=== PATIENT | female | born 1965 | race Caucasian/White ===

== ENCOUNTER 2024-07-14 14:37 | Outpatient (REF) | payer OTHER, SELFPAY ==
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
[2024-07-14 16:11] LABS: Thyroid Stimulating Hormone 0.74 uIU/mL (0.32-4.0)
[2024-07-14 16:13] LABS: Vitamin B12 487 pg/mL (200-900)
== END 2024-07-14 14:38 | disposition home or self-care (01) ==
LOC: HO.LAB 14:37
PROVIDERS: Visit Provider Psychiatry & Neurology Neurology
DX: G31.84 Mild cognitive impairment of uncertain or unknown etiology (principal)
CPT/HCPCS: 36415; 82607; 84443

== ENCOUNTER 2024-09-21 11:05 | Outpatient (AMB) | payer OTHER, SELFPAY ==
--- NOTE | 2024-09-21 11:21 | A.OFFVIS_ITS ---
Intake Visit Reasons: F/u Allergies acetaminophen (From Percocet) Allergy (Unknown, Verified 09/15/24 10:55) Unknown codeine Allergy (Unknown, Verified 09/15/24 10:55) Unknown oxycodone (From Percocet) Allergy (Unknown, Verified 09/15/24 10:55) Unknown Medication List - Last Reconciled 09/21/24 by Peggy Reddy MD fluoxetine 20 mg PO DAILY gabapentin 600 mg PO DAILY propranolol 10 mg PO ONCE sumatriptan succinate take 1 tab at onset of headache; if no relief may repeat 1 tab after at least 2 hrs; max = 4 tabs/24 hr PO trazodone 50 mg PO BEDTIME zolpidem 10 mg PO BEDTIME HPI Comments Details: 59 years old woman with migraine, restless legs syndrome/periodic limb movement disorder, and insomnia. [facility] Medical History (Updated 09/21/24 @ 11:27 by Peggy Reddy MD) MCI (mild cognitive impairment) Anxiety disorder Depression Insomnia Periodic limb movement Migraine Review of Systems Const Details: Constitutional:?No fever, chills, fatigue, weight loss, or night sweats. HEENT:?No headache, vision changes, hearing loss, nasal congestion, sore throat. Neurological:?No dizziness, syncope, seizures, numbness, tingling, weakness, tremors, memory loss. Psychiatric:?No anxiety, depression, mood swings, sleep disturbance, or hallucinations. Endocrine:?No heat/cold intolerance, polydipsia, polyuria, or hair/skin changes. Hematologic/Lymphatic:?No easy bruising, bleeding, or lymphadenopathy. Integumentary (Skin):?No rash, lesions, itching, or color changes. ? Physical Exam Neuro Other: Mental Status: Alert and oriented to person, place, and time. Normal attention. Normal spontaneous speech, fluency, and comprehension. No obvious issues with mood and memory. Affect is appropriate. Cranial Nerves: CN II: Visual cid full to confrontation, visual acuity intact. CN III, IV, : Pupils equal, round, reactive to light and accommodation. Extraocular movements are normal. CN V: Facial sensation is normal. CN VII: Facial movements symmetrical. CN VIII: Hearing intact to bedside conversation is normal. CN IX, X: Palate elevates symmetrically. CN XI: Shoulder shrug and head turn symmetrical. CN XII: Tongue midline without atrophy or fasciculations. Extrapyramidal: Full facial expressions and blinking. No rigidity. Movements are appropriate with no tremor or abnormality. Speech: Normal; no dysarthria or tremor. Assessment & Plan Assessment & Plan (1) Migraine without aura: Code(s): G43.009 - Migraine without aura, not intractable, without status migrainosus Category: Medical Qualifiers: Status migrainosus presence: without status migrainosus Intractability: not intractable Qualified Code(s): G43.009 - Migraine without aura, not intractable, without status migrainosus (2) Periodic limb movement: Code(s): G47.61 - Periodic limb movement disorder Category: Medical (3) Insomnia: Code(s): G47.00 - Insomnia, unspecified Category: Medical Qualifiers: Insomnia type: psychophysiologic Qualified Code(s): F51.04 - Psychophysiologic insomnia (4) Depression: Code(s): F32.A - Depression, unspecified Category: Medical Qualifiers: Depression Type: unspecified Qualified Code(s): F32.A - Depression, unspecified (5) Anxiety disorder: Code(s): F41.9 - Anxiety disorder, unspecified Category: Medical Qualifiers: Anxiety disorder type: other anxiety disorder Qualified Code(s): F41.8 - Other specified anxiety disorders (6) MCI (mild cognitive impairment): Code(s): G31.84 - Mild cognitive impairment of uncertain or unknown etiology Category: Medical Plan Impression: a: Migraine w/o aura b: PLMS c: Insomnia d: Depression e: Anxeity f: MCI Rec: a: Sumatriptan 50mg one a day as needed for headaches b: Gabapentin 600 at bedtime for PMMS c: Tranzodone 50mg + Zolpidem 10mg for chonic insomnia d: Fluoxetine 20mg a day for depression and anxiety e: Propranalol 10mg as needed Medications: New fluoxetine 20 mg PO DAILY 30 caps 5RF zolpidem 10 mg PO BEDTIME 30 tabs 5RF trazodone 50 mg PO BEDTIME 30 tabs 5RF Coding Level of Care Code Est Pt Level 5 (35238) Diagnoses Migraine without aura and without status migrainosus, not intractable G43.009 Status migrainosus presence: without status migrainosus Intractability: not intractable Periodic limb movement G47.61 Psychophysiological insomnia F51.04 Insomnia type: psychophysiologic Depression, unspecified depression type F32.A Depression Type: unspecified Other specified anxiety disorders F41.8 Anxiety disorder type: other anxiety disorder MCI (mild cognitive impairment) G31.84
--- OUTSIDE RECORDS SUMMARY | 2024-09-21 12:16 | XMS_ITS | Clinical Summary ---
Author Organization [facility] [address] [place] [address] [place] [phone] Phone Care Team Providers Care Occupational Health And Safety Adviser Name Role Phone Nikko Murillo MD Primary Care Provider [phone] Allergies Active Allergy Reactions Criticality Noted Date Comments Codeine 09/16/2009 abd pain Oxycodone-Acetaminophen Itching 09/16/2009 Tightness in Throat Medications FLUoxetine (PROzac) 20 mg capsule Take 2 Caps by mouth daily. 06/13/2017 Active gabapentin (NEURONTIN) 600 mg tablet Take 600 mg by mouth. 1 TAB PO DAILY Active ibuprofen (ADVIL,MOTRIN) 800 mg tablet 01/10/2021 Activ e traZODone (DESYREL) 50 mg tablet Take 1 Tab by mouth at bedtime. 06/13/2017 Active zolpidem (AMBIEN) 10 mg tablet Take 1 tablet (10 mg total) by mouth at bedtime as needed for sleep. Max Daily Amount: 10 mg Active Active Problems Problem Noted Date Diagnosed Date Diverticulitis 06/23/2024 Genital warts 01/04/2021 Impaired fasting glucose 04/20/2020 Hyperlipidemia 04/04/2020 Overview (02/24/2024): ASCVD score 1.7% Obesity (BMI 30-39.9) 11/30/2018 Alcohol abuse 07/18/2015 Major depressive disorder, r ecurrent episode, in full remission (CMS/HCC V24) 01/24/2015 Periodic limb movement disorder (PLMD) 0 Restless leg syndrome 09/16/2009 Encounters Date Type Department Care Team Description 06/23/2024 8:00 AM EDT - 06/24/2024 2:45 PM EDT Hospital Encounter [facility] [address] [place] [address] Luis Eng MD [place], MD Kandace Owusu, Crow Vieira MD Sigmoid diverticulitis (Primary Dx) Discharge Disposition: Home or Self Care from Last 3 Months Immunizations Name Administration [...] x 2 health y brothers Diabetes Father [place] age 70s, str michael/TIA, anxiety/depression Heart attack [...] 83 06/24/2024 7:34 AM EDT Temperature 36.4 C (97.5 F) 06/24/2024 7:34 AM EDT Respiratory Rate 17 06/24/2024 7:34 AM EDT [...] 4:00 PM EST Office Visit Adult Medicine [address] [phone] Milagros Lopez PA [address] [place] [id number] Health Maintenance Due Date Last Done Comments Hepatitis A Vaccines (1 of 2 - Risk 2-dose series) 1985 Hepatitis B Vaccines (1 of 3 - 19+ 3-dose series) 1985 Pneumococcal Vaccine: 50+ Years (1 of 1 - PCV) 2016 Zoster Vaccines (1 of 2) 2016 Breast Cancer Screening 08/01/2020 08/01/2018 Colorectal Cancer Screening: Stool Based Tests (FOBT/FIT) 02/10/2022 HIV Screening 02/10/2022 Social Influencers of Health Screening 02/10/2022 COVID-19 Vaccine ( - season) 2023 05/05/2020, 04/07/2020 Depression Screening 03/04/2024 Influenza Vaccine (#1) 2024 , 12/08/2022, 11/25/2021, Additional history exists Cholesterol Screening (Lipid Panel) 05/29/2026 05/29/2021 DTaP,Tdap,and Td Vaccines (2 - Td or Tdap) 11/26/2028 11/26/2018 Hepatitis C Screening Completed 04/01/2020 HIB Vaccines Aged Out No longer eligi [...] K/mcL LAB HEMETOLOGY METHOD 06/24/2024 7:27 AM [facility] RBC 3.60(L) 3.80 - 4.80 M/mcL LAB HEMETOLOGY METHOD 06/24/2024 7:27 AM [facility] Hemoglobin 11.6 11.5 - 16.0 g/dL LAB HEMETOLOGY METHOD 06/24/2024 7:27 AM [facility] Hematocrit 35.6 35.0 - 47.0 % LAB HEMETOLOGY METHOD 06/24/2024 7:27 AM [facility] MCV 98.9(H) 79.0 - 98.0 FL LAB HEMETOLOGY METHOD 06/24/2024 7:27 AM [facility] MCH 32.2(H) 27.0 - 32.0 pcg LAB HEMETOLOGY METHOD 06/24/2024 7:27 AM [facility] MCHC 32.6 32.0 - 37.0 g/dL LAB HEMETOLOGY METHOD 06/24/2024 7:27 AM [facility] RDW 12.2 11.0 - 15.0 % LAB HEMETOLOGY [facility] Platelets 374 130 - 400 K/mcL LAB HEMETOLOGY METHOD 06/24/2024 7:27 AM EDT [facility] MPV 9.7 7.0 - 11.0 FL LAB HEMETOLOGY METHOD 06/24/2024 7[facility] NRBC 0.0 <1.0 % LAB HEMETOLOGY METHOD 06/24/2024 7:[facility] NRBC Absolute 0.00 <0.10 K/mcL LAB HEMETOLOGY METHOD 06/24/2024 7:27 AM [facility] Blood Venous blood specimen / Unknown Venipuncture / Unknown 06/24/2024 6:29 AM EDT 06/24/2024 6:45 AM EDT us Umer Stein MD LAB BLOOD ORDERABLES Final Res ult [facility] [address] [place] [address], * (ABNORMAL) Basic metabolic panel (06/24/2024 6:29 AM EDT) Sodium 140 133 - 145 mmol/L LAB CHEMISTRY METHOD 06/24/2024 7:32 AM [facility] Potassium 3.8 3.5 - 5.5 mmol/L LAB CHEMISTRY METHOD 06/24/2024 7:32 AM [facility] Chloride 107 96 - 110 mmol/L LAB CHEMISTRY METHOD 06/24/2024 7:32 AM [facility] CO2 30 21 - 32 mmol/L LAB CHEMISTRY METHOD 06/24/2024 7:32 AM [facility] Anion Gap 3 3 - 11 LAB CHEMISTRY METHOD 06/24/2024 7:32 AM [facility] Glucose 122(H) 70 - 100 mg/dL LAB CHEMISTRY METHOD 06/24/2024 7:32 AM EDT [facility] BUN 6 5 - 25 mg/dL LAB CHEMISTRY METHOD 06/24/2024 7[facility] Creatinine 0.72 0.50 - 1.10 mg/dL LAB CHEMISTRY METHOD 06/24/2024 7[facility] eGFR 97 >=60 mL/min/1. 73m2 LAB CHEMISTRY METHOD 06/24/2024 7:32 AM EDT [facility] Comment:Calculation based on the Chronic Kidney Disease Epidemiology Collaboration (CKD-EPI) equation refit without adjustment for race. BUN/Creatinine Ratio 8.3 LAB CHEMISTRY METHOD 06/24/2024 7:32 AM [facility] Calcium 8.1(L) 8.5 - 10.5 mg/dL LAB CHEMISTRY METHOD 06/24/2024 7:32 AM [facility] Blood Venous blood specimen / Unknown Venipuncture / Unknown 06/24/2024 6:29 AM EDT 06/24/2024 6:46 AM EDT us Umer Stein MD LAB BLOOD ORDERABLES Final Res ult [facility] [address] [place] [address], * (ABNORMAL) Urinalysis with reflex microscopic and culture (06/23/2024 10:56 AM EDT) Specific [place] Urine >1.045(H) 1.003 - 1.030 LAB URINALYSIS - AUTOMATED METHOD 06/23/2024 1:22 PM [facility] pH, Urine 6.0 5.0 - 8.0 pH LAB URINALYSIS - AUTOMATED METHOD 06/23/2024 1:22 PM [facility] Leukocytes, Urine Negative Negative LAB URINALYSIS - AUTOMATED METHOD 06/23/2024 1:22 PM EDT [facility] Nitrite, Urine Negative Negative LAB URINALYSIS - AUTOMATED METHOD 06/23/2024 1:22 PM EDT [facility] Protein, Urine Negative <=Trace mg/dL LAB URINALYSIS - AUTOMATED METHOD 06/23/2024 1:22 PM EDT [facility] Glucose, Urine Negative Negative mg/dL LAB URINALYSIS - AUTOMATED METHOD 06/23/2024 1:22 PM T [facility] Ketones, Urine Trace(A) Negative mg/dL LAB URINALYSIS - AUTOMATED METHOD 06/23/2024 1:22 PM T [facility] Urobilinogen , Urine 0.2 0.2 - 1.0 mg/dL LAB URINALYSIS - AUTOMATED METHOD 06/23/2024 1:22 PM [facility] Bilirubin, Urine Negative Negative LAB URINALYSIS - AUTOMATED METHOD 06/23/2024 1:22 PM [facility] Blood, Urine Negative Negative LAB URINALYSIS - AUTOMATED METHOD 06/23/2024 1:22 PM [facility] Urine Urine specimen obtained by clean catch procedure / Unknown Non-blood Collection / Unknown 06/23/2024 10:56 AM EDT 06/23/2024 1:21 PM EDT us Charles Mcallister DO LAB URINE ORDERABLES Final Result [facility] [address] [place] [address], * Chow urine culture tube (06/23/2024 10:56 AM EDT) Extra Tube Hold for add-ons. 06/23/2024 1:01 PM EDT [facility] Comment:Auto resulted. Urine Urine specimen obtained by clean catch procedure / Unknown Non-blood Collection / Unknown 06/23/2024 10:56 AM EDT 06/23/2024 11:22 AM EDT Charles Jazmine Mcallister DO LAB URINE ORDERABLES [facility] ([facility]) [facility] [address] [place] [address], [place] [phone] * CT Abdomen Pelvis w Contrast (06/23/2024 9:22 AM EDT) Anatomical Region Laterality Modality Body Computed Tomogra phy 06/23/2024 9:35 AM EDT Impressions 06/23/2024 9:40 AM EDT 1. Acute uncomplicated sigmoid diverticulitis. 2. Hepatic steatosis. -------- FINAL REPORT -------- Dictated By: Anderson Cheema Dictated Date: 06/23/2024 09:35 ET Assigned Physician: Anderson Cheema Reviewed and Electronically Signed By: Anderson Cheema Signed Date: 06/23/2024 09:40 ET Workstation ID: [id number] Transcribed By: Self Edit Transcribed Date: 06/23/2024 [...] focal fatty infiltration along the intersegmental fissure. Benign-appearing peripheral calcification along the inferior right lobe. Portal veins are patent. Biliary: Cholecystectomy. Mild prominence of the biliary tree, probably secondary to a post cholecystectomy reservoir effect. No visible ductal filling defect. Pancreas: Normal. Spleen: Normal. Adrenal glands: Normal. Kidneys: Normal. Normal appearance of the ureters. Retroperitoneum: No mass or adenopathy. Abdominal vasculature: Normal. Bowel/mesentery: No obstruction or adenopathy. No mass or ascites. Distal prominent colonic diverticulosis. Inflammatory fat stranding centered around a large sigmoid diverticulum. Normal appendix. Abdominal wall: Normal. Pelvic nodes: No adenopathy. Pelvic organs: Hysterectomy. Bones: Mild degenerative changes of the spine. Right L5 pars defect. Procedure Note Anderson Cheema [...] Signed Date: 06/23/2024 09:40 ET Workstation ID: [id number] Transcribed By: Self Edit Transcribed Date: 06/23/2024 09:35 ET us Luis Eng MD IMG CT PROCEDURES Final Result * (ABNORMAL) CBC auto differential (06/23/2024 8:19 AM EDT) [facility] WBC 12.5(H) 4.8 - 10.8 K/mcL LAB HEMETOLOGY METHOD 06/23/2024 8:30 AM [facility] RBC 4.10 3.80 - 4.80 M/mcL LAB HEMETOLOGY METHOD 06/23/2024 8:[facility] Hemoglobin 13.3 11.5 - 16.0 g/dL LAB HEMETOLOGY METHOD 06/23/2024 8:30 AM [facility] Hematocrit 39.5 35.0 - 47.0 % LAB HEMETOLOGY METHOD 06/23/2024 8:30 AM [facility] MCV 97.1 79.0 - 98.0 FL LAB HEMETOLOGY METHOD 06/23/2024 8:30 AM [facility] MCH 32.7(H) 27.0 - 32.0 pcg LAB HEMETOLOGY METHOD 06/23/2024 8:30 AM [facility] MCHC 33.7 32.0 - 37.0 g/dL LAB HEMETOLOGY METHOD 06/23/2024 8:30 AM [facility] RDW 12.3 11.0 - 15.0 % LAB HEMETOLOGY METHOD 06/23/2024 8:30 AM [facility] Platelets 419(H) 130 - 400 K/mcL LAB HEMETOLOGY METHOD 06/23/2024 8:30 AM [facility] MPV 9.5 7.0 - 11.0 FL LAB HEMETOLOGY METHOD 06/23/2024 8:30 AM [facility] NRBC 0.0 <1.0 % LAB HEMETOLOGY METHOD 06/23/2024 8:30 AM [facility] NRBC Absolute 0.00 <0.10 K/mcL LAB HEMETOLOGY METHOD 06/23/2024 8:30 AM EDT [facility] Neutrophils Relative 76.8 % LAB HEMETOLOGY METHOD 06/23/2024 8:[facility] Lymphocytes Relative 9.6 % LAB HEMETOLOGY METHOD 06/23/2024 8:30 AM EDT [facility] Monocytes Relative 11.6 % LAB HEMETOLOGY METHOD 06/23/2024 8:30 AM EDT [facility] Eosinophils Relative 0.6 % LAB HEMETOLOGY METHOD 06/23/2024 8:[facility] Basophils Relative 1.0 % LAB HEMETOLOGY METHOD 06/23/2024 8:30 AM [facility] Immature Granulocytes Relative 0.4 % LAB HEMETOLOGY METHOD 06/23/2024 8:30 AM [facility] Neutrophils Absolute 9.58(H) 1.50 - 7.00 K/mcL LAB HEMETOLOGY METHOD 06/23/2024 8:[facility] Lymphocytes Absolute 1.19 1.00 - 5.00 K/mcL LAB HEMETOLOGY METHOD 06/23/2024 8:30 AM [facility] Monocytes Absolute 1.44(H) 0.20 - 1.00 K/mcL LAB HEMETOLOGY METHOD 06/23/2024 8:[facility] Eosinophils Absolute 0.08 0.00 - 0.50 K/mcL LAB HEMETOLOGY METHOD 06/23/2024 8:[facility] Basophils Absolute 0.12 0.00 - 0.20 K/mcL LAB HEMETOLOGY METHOD 06/23/2024 8:30 [facility] Immature Granulocytes Absolute 0.05(H) 0.00 - 0.03 K/mcL LAB HEMETOLOGY METHOD 06/23/2024 8:30 AM EDT [facility] Blood Venous blood specimen / Unknown Venipuncture / Unknown 06/23/2024 8:19 AM EDT 06/23/2024 8:23 AM EDT Charles Mcallister DO LAB BLOOD ORDERABLES Final Result Performing Organization Address City/[facility]/ZIP Co de Phone Number [facility] [address] [place] [address], [place] [phone] * Lipase (06/23/2024 8:19 AM EDT) [facility] Lipase 19 13 - 75 unit/L LAB CHEMISTRY METHOD 06/23/2024 8:45 AM EDT [facility] Blood Venous blood specimen / Unknown Venipuncture / Unknown 06/23/2024 8:19 AM EDT 06/23/2024 8:23 AM EDT us Charles Mcallister DO LAB BLOOD ORDERABLES Final Result Performing Organization Address [facility] Co de Phone Number [facility] [address] [place] [address], [place] [phone] * (ABNORMAL) Comprehensive metabolic panel (06/23/2024 8:19 AM EDT) [facility] Sodium 135 133 - 145 mmol/L LAB CHEMISTRY METHOD 06/23/2024 8:45 AM EDT [facility] Potassium 4.1 3.5 - 5.5 mmol/L LAB CHEMISTRY METHOD 06/23/2024 8:45 AM EDT [facility] Chloride 101 96 - 110 mmol/L LAB CHEMISTRY METHOD 06/23/2024 8:45 AM EDT [facility] CO2 26 21 - 32 mmol/L LAB CHEMISTRY METHOD 06/23/2024 8:45 AM EDT [facility] Anion Gap 8 3 - 11 LAB CHEMISTRY METHOD 06/23/2024 8:45 AM [facility] Glucose 169(H) 70 - 100 mg/dL LAB CHEMISTRY METHOD 06/23/2024 8:45 AM [facility] BUN 12 5 - 25 mg/dL LAB CHEMISTRY METHOD 06/23/2024 8:45 AM [facility] Creatinine 0.92 0.50 - 1.10 mg/dL LAB CHEMISTRY METHOD 06/23/2024 8:45 AM [facility] eGFR 72 >=60 mL/min/1. 73m2 LAB CHEMISTRY METHOD 06/23/2024 8:45 AM [facility] Comment:Calculation based on the Chronic Kidney Disease Epidemiology Collaboration (CKD-EPI) equation refit without adjustment for race. BUN/Creatinine Ratio 13.0 LAB CHEMISTRY METHOD 06/23/2024 8:45 AM [facility] Calcium 9.2 8.5 - 10.5 mg/dL LAB CHEMISTRY METHOD 06/23/2024 8:45 AM [facility] AST (SGOT) 34 10 - 42 unit/L LAB CHEMISTRY METHOD 06/23/2024 8:45 AM [facility] ALT (SGPT) 59 10 - 60 unit/L LAB CHEMISTRY METHOD 06/23/2024 8:45 AM [facility] Alkaline Phosphatase 116 42 - 121 unit/L LAB CHEMISTRY METHOD 06/23/2024 8:45 AM [facility] Total Protein 7.3 6.0 - 8.0 g/dL LAB CHEMISTRY METHOD 06/23/2024 8:45 AM [facility] Albumin 3.8 3.2 - 5.0 g/dL LAB CHEMISTRY METHOD 06/23/2024 8:45 AM [facility] Total Bilirubin 1.2 0.0 - 1.4 mg/dL LAB CHEMISTRY METHOD 06/23/2024 8:45 AM EDT [facility] Blood Venous blood specimen / Unknown Venipuncture / Unknown 06/23/2024 8:19 AM EDT 06/23/2024 8:23 AM EDT Charles Mcallister DO LAB BLOOD ORDERABLES Final Result [facility]) [facility] [address] [place] [address], * (ABNORMAL) Lipid panel (05/29/2021) LDL/HDL Ratio [...] composed of fatty and fibroglandular tissue. No suspicious mass, architectural distortion or suspicious calcifications [...] currently active code status orders. Care Teams Occupational Health And Safety Adviser Relationship Specialty Start Date End Date Nikko Murillo MD [address] [place] [id number] PCP - General 01/11/22
== END 2024-09-21 11:36 | disposition home or self-care (01) ==
LOC: HO.HSM 11:06
PROVIDERS: PCP Internal Medicine; Visit Provider Psychiatry & Neurology Neurology
DX: G43.009 Migraine without aura, not intractable, without status migrainosus (principal); G47.61 Periodic limb movement disorder; F51.04 Psychophysiologic insomnia; F32.A Depression, unspecified; F41.8 Other specified anxiety disorders; G31.84 Mild cognitive impairment of uncertain or unknown etiology
CPT/HCPCS: 99214